=== PATIENT | female | born 1990 | race Caucasian/White ===

== ENCOUNTER 2016-09-10 22:12 | Emergency (ER) | payer OTHER ==
[~2016-09-10] VITALS: Ht 147.3 cm; Wt 75.0 kg
[2016-09-10 22:39] VITALS: BP 118/63; PULSE 89; RESP 18; TEMP 98.1; O2SAT 100
[2016-09-10] MEDS ORDERED: VENL75TA PO (22:47)
[2016-09-10] MEDS ORDERED: TOPA50TA7 PO (22:47)
[2016-09-10] MEDS ORDERED: ARIP1TAB5 PO (22:47)
[2016-09-10 23:10] LABS: AUTOMATED NEUTROPHIL # 15.6 TH/MM3 (1.8-7.7); BASOPHIL # 0.1 TH/MM3 (0-0.2); BASOPHIL % 0.4 % (0.0-2.0); EOSINOPHIL # 0.3 TH/MM3 (0-0.4); EOSINOPHIL % 1.2 % (0.0-4.0); HEMATOCRIT 36.1 % (35.0-46.0); LYMPH % 28.1 % (9.0-44.0); LYMPHOCYTE # 6.8 TH/MM3 (1.0-4.8); MEAN CELL VOLUME 76.1 FL (80.0-100.0); MEAN CORPUSCULAR HGB CONC 31.5 % (32.0-36.0); NEUT % 64.3 % (16.0-70.0); PLATELET COUNT 366 TH/MM3 (150-450); RED BLOOD COUNT 4.74 MIL/MM3 (4.00-5.30); WHITE BLOOD COUNT 24.2 TH/MM3 (4.0-11.0)
[2016-09-10 23:20] LABS: HEMO FLAGS AUTO DIFF
[2016-09-10 23:20] LABS: AMPHETAMINE, URINE NEG (NEG); BARBITURATES, URINE NEG (NEG); COCAINE, URINE NEG (NEG)
[2016-09-10 23:37] LABS: ALT (GPT) 21 U/L (10-53); ANION GAP 7 MEQ/L (5-15); AST (GOT) 10 U/L (15-37); BICARBONATE 25.7 MEQ/L (21.0-32.0); BLOOD UREA NITROGEN 21 MG/DL (7-18); CHLORIDE 109 MEQ/L (98-107); GLOMERULAR FILTRATION RATE 67 ML/MIN (>89); POTASSIUM 3.9 MEQ/L (3.5-5.1); SODIUM (NA) 142 MEQ/L (136-145)
[2016-09-10 23:40] LABS: ALKALINE PHOSPHATASE 61 U/L (45-117); TOTAL BILIRUBIN ADULT 0.2 MG/DL (0.2-1.0)
--- NOTE | 2016-09-11 00:03 | PD ---
HPI . Suicidal ideation Chief Complaint: Psychiatric Symptoms Time Seen by Provider: 22:45 Travel History International Travel<30 days: No Contact w/Intl Traveler<30days: No Traveled to known affect area: No History of Present Illness HPI Patient presents to us as a Lorenzo Act because of suicidal ideation. Patient states that she has been an inpatient at an alcohol and drug abuse treatment center for about a week. He states that she told him tonight that she was thinking about killing herself. She states that she does not have a plan but if she did have a plan that would be to overdose. She states that she is in rehabilitation because of alcohol abuse. PFSH Past Medical History Asthma: Yes Depression: Yes (PTSD) Deep Vein Thrombosis: Yes (left leg) Tetanus Vaccination: < 5 Years Influenza Vaccination: No ?: Not LMP: 04/27/2016, pt states "i have very irregular periods" Past Surgical History Surgical History: No Previous Surgery Social History Alcohol Use: Yes (was daily until entered the treatment center) Tobacco Use: Yes (0.25 ppd) Substance Use: No Allergies-Medications (Allergen,Severity, Reaction): Coded Allergies: No Known Allergies (Unverified , 09/10/16) Reported Meds & Prescriptions Reported Meds & Active Scripts Active Reported Abilify (Aripiprazole) 10 Mg Tab 10 Mg PO DAILY Topamax (Topiramate) 50 Mg Tab 50 Mg PO DAILY Effexor (Venlafaxine HCl) 75 Mg Tab 150 Mg PO DAILY Review of Systems Except as stated in HPI: all other systems reviewed are Neg Psychiatric: Positive: Suicidal Ideations, Substance Abuse Physical Exam Narrative GENERAL: Awake and alert and in no acute distress. SKIN: Warm and dry. HEAD: Atraumatic. Normocephalic. EYES: Pupils equal and round. NECK: Trachea midline. CARDIOVASCULAR: Regular rate and rhythm. RESPIRATORY: No accessory muscle use. MUSCULOSKELETAL: No obvious deformities. No edema. NEUROLOGICAL: Awake and alert. No obvious cranial nerve deficits. Motor grossly within normal limits. Normal speech. PSYCHIATRIC: Flat affect. Good eye contact. Poor judgment. Data Data Last Documented VS Vital Signs Date Time Temp Pulse Resp B/P Pulse Ox O2 Delivery O2 Flow Rate FiO2 09/11/16 00:45 77 18 113/63 98 Room Air 09/10/16 22:39 98.1 Orders Complete Blood Count With Diff (09/10/16 22:45) Comprehensive Metabolic Panel (09/10/16 22:45) Psych Screen (09/10/16 22:45) Drug Screen, Random Urine (09/10/16 22:45) Alcohol (Ethanol) (09/10/16 22:45) Lactic Acid Sepsis Protocol (09/11/16 00:28) Urinalysis - C+S If Indicated (09/11/16 00:28) Blood Culture (09/11/16 00:28) Chest, Single Ap (09/11/16 00:28) Iv Access Insert/Monitor (09/11/16 00:28) Labs Laboratory Tests Test 09/10/16 09/10/16 09/11/16 22:45 22:50 00:45 Sodium Level 142 MEQ/L Potassium Level 3.9 MEQ/L Chloride Level 109 MEQ/L Carbon Dioxide Level 25.7 MEQ/L Anion Gap 7 MEQ/L Blood Urea Nitrogen 21 MG/DL Creatinine 1.01 MG/DL Estimat Glomerular Filtration 67 ML/MIN Rate Random Glucose 85 MG/DL Calcium Level 8.7 MG/DL Total Bilirubin 0.2 MG/DL Aspartate Amino Transf 10 U/L (AST/SGOT) Alanine Aminotransferase 21 U/L (ALT/SGPT) Alkaline Phosphatase 61 U/L Total Protein 6.8 GM/DL Albumin 3.3 GM/DL Ethyl Alcohol Level LESS THAN 3 MG/DL White Blood Count 24.2 TH/MM3 Red Blood Count 4.74 MIL/MM3 Hemoglobin 11.4 GM/DL Hematocrit 36.1 % Mean Corpuscular Volume 76.1 FL Mean Corpuscular Hemoglobin 24.0 PG Mean Corpuscular Hemoglobin 31.5 % Concent Red Cell Distribution Width 17.0 % Platelet Count 366 TH/MM3 Mean Platelet Volume 7.4 FL Neutrophils (%) (Auto) 64.3 % Lymphocytes (%) (Auto) 28.1 % Monocytes (%) (Auto) 6.0 % Eosinophils (%) (Auto) 1.2 % Basophils (%) (Auto) 0.4 % Neutrophils # (Auto) 15.6 TH/MM3 Lymphocytes # (Auto) 6.8 TH/MM3 Monocytes # (Auto) 1.4 TH/MM3 Eosinophils # (Auto) 0.3 TH/MM3 Basophils # (Auto) 0.1 TH/MM3 CBC Comment AUTO DIFF Differential Total Cells 100 Counted Neutrophils % (Manual) 61 % Band Neutrophils % 5 % Lymphocytes % 29 % Monocytes % 3 % Eosinophils % 2 % Neutrophils # (Manual) 16.0 TH/MM3 Differential Comment FINAL DIFF MANUAL Atypical Lymphocytes % Toxic Granulation 1+ Platelet Estimate NORMAL Platelet Morphology Comment NORMAL Urine Opiates Screen NEG Urine Barbiturates Screen NEG Urine Amphetamines Screen NEG Urine Benzodiazepines Screen NEG Urine Cocaine Screen NEG Urine Cannabinoids Screen NEG Urine Color YELLOW Urine Turbidity CLEAR Urine pH 6.5 Urine Specific [place] 1.026 Urine Protein NEG mg/dL Urine Glucose (UA) NEG mg/dL Urine Ketones NEG mg/dL Urine Occult Blood NEG Urine Nitrite NEG Urine Bilirubin NEG Urine Urobilinogen LESS THAN 2.0 MG/DL Urine Leukocyte Esterase NEG Urine RBC 1 /hpf Urine WBC 2 /hpf Urine Squamous Epithelial 2 /hpf Cells Urine Mucus FEW /lpf Urine Yeast (Budding) RARE Microscopic Urinalysis Comment CATH-CULT NOT IND Lactic Acid Level 1.1 mmol/L MDM Medical Decision Making Medical Screen Exam Complete: Yes Emergency Medical Condition: Yes Differential Diagnosis Differential diagnosis includes but is not limited to depression with suicidal gesture, suicide attempt, suicidal ideation, attention seeking behavior. Narrative Course Patient presents to us from another facility for suicidal ideation. She will be medically clear. Psych triage will be consult. CBC & BMP Diagram 09/10/16 22:45 Tox screen is negative. I have subsequently ordered a septic workup. Lactic acid level is normal. UA is negative for infection. Chest x-ray is clear. She is now medically clear for psychiatric evaluation. Diagnosis Primary Impression: Suicidal ideation Additional Impression: Leukocytosis Qualified Code: D72.829 - Leukocytosis, unspecified type Condition: Antonia Chadwick MD Sep 11, 2016 00:03
[2016-09-11 00:19] LABS: BANDS 5 % (0-6); EOSINOPHILS 2 % (0-4); PLATELET ESTIMATE SMEAR NORMAL (NORMAL); PLATELET MORPHOLOGY NORMAL (NORMAL); POLYS (SEG NEUTROPHILS) 61 % (16-70); SCAN/DIFF FINAL DIFF MANUAL; WBC DIFF SAMPLE 100
[2016-09-11 00:20] LABS: TOXIC GRANULATION 1+ (NORMAL)
[2016-09-11 00:45] VITALS: BP 113/63; PULSE 77; RESP 18; O2SAT 98
--- NOTE | 2016-09-11 01:09 | RADRPT ---
EXAM DATE/TIME: 09/11/2016 00:33 [facility] COMPARISON: No previous studies available for comparison. INDICATIONS : Shortness of breath. MEDICAL HISTORY : Asthma. SURGICAL HISTORY : None. ENCOUNTER: Initial ACUITY: 1 day PAIN SCORE: 0/10 LOCATION: Bilateral chest FINDINGS: A single view of the chest demonstrates the lungs to be symmetrically aerated without evidence of mas s, infiltrate or effusion. The cardiomediastinal contours are unremarkable. Osseous structures are intact. CONCLUSION: 1. No acute cardiopulmonary disease. Mickey Catalan MD on September 11, 2016 at 1:07 Board Certified Radiologist. This report was verified electronically.
[2016-09-11 01:37] LABS: BLOOD, URINE NEG (NEG); COMMENT (UR) CATH-CULT NOT IND; CULTURE IF INDICATED CATH CULTURE NOT IND; GLUCOSE,URINE NEG (NEG); KETONE, URINE NEG (NEG); MUCUS URINE FEW /lpf (OCC); NITRITE,URINE NEG (NEG); PH, URINE 6.5 (5.0-8.5); SQUAMOUS EPITHELIAL CELL URINE 2 /hpf (0-5); URINE COLOR YELLOW (YELLW/STRAW)
[2016-09-11 02:50] VITALS: BP 110/56; PULSE 75; RESP 18; O2SAT 97
[2016-09-11] MEDS ORDERED: TOPA100T11 PO (03:15)
[2016-09-11] MEDS ORDERED: GABA600T PO (03:15)
[2016-09-11] MEDS ORDERED: [UNRECOGNIZED DRUG - OTHER] PO (03:15)
[2016-09-11] MEDS ORDERED: ANTI2TAB PO (03:15)
[2016-09-11] MEDS ORDERED: FOLI1TAB4 PO (03:15)
[2016-09-11] MEDS ORDERED: KETO10 PO (03:15)
[2016-09-11] MEDS ORDERED: THIA100T PO (03:15)
[2016-09-11] MEDS ORDERED: IBUP400T20 PO (03:15)
[2016-09-11] MEDS ORDERED: PRAZ1CAP PO (03:15)
[2016-09-11] MEDS ORDERED: ROBA500T PO (03:15)
[2016-09-11] MEDS ORDERED: MULT1TAB84 PO (03:15)
[2016-09-11] MEDS ORDERED: VENTAER INH (03:15)
[2016-09-11] MEDS ORDERED: ZOFR4TAB3 SL (03:15)
[2016-09-11] MEDS ORDERED: VENL100T PO (03:15)
[2016-09-11] MEDS ORDERED: BENT20TA PO (03:15)
[2016-09-11] MEDS ORDERED: CLON0.1T PO (03:15)
[2016-09-11] MEDS ORDERED: TRAZ50TA12 PO (03:15)
[2016-09-11] MEDS ORDERED: VIST50CA PO (03:15)
[2016-09-11] MEDS ORDERED: SKIN1CRE2 TOPICAL (03:15)
[2016-09-11] MEDS ORDERED: CALC550C CHEW (03:15)
[2016-09-11] MEDS ORDERED: BENA25TA3 PO (03:15)
[2016-09-11] MEDS ORDERED: BENZ100 PO (03:15)
[2016-09-11] MEDS ORDERED: LAMI200T PO (03:15)
[2016-09-11] MEDS ORDERED: PRED10 PO (03:15)
[2016-09-11] MEDS ORDERED: IBUP800T23 PO (03:15)
[2016-09-11] MEDS ORDERED: ACET-703 PO (03:15)
[2016-09-11] MEDS ORDERED: COLA100C3 PO (03:15)
[2016-09-11] MEDS ORDERED: MILKSUS PO (03:15)
[2016-09-11] MEDS ORDERED: MYLASUS2 PO (03:15)
[2016-09-11 03:25] VITALS: BP 119/74; PULSE 78; RESP 18
[2016-09-11 06:30] VITALS: BP 112/62; PULSE 72; RESP 16
--- NOTE | 2016-09-11 12:44 | PD.CONS ---
Provisional Diagnosis Admission Date [place] I. Adjustment disorder with disturbance of conduct, alcohol use disorder, in early partial remission [place] II. Deferred [place] III. Asthma [place] IV. History of alcohol use disorder [place] V. 55 History of Present Illness Service Psychiatry Consult Requested By Primary Care Physician No Primary Care Physician HPI The patient is a 25-year-old woman, domiciled in [facility] in [place], single, unemployed, supported by parents, with psychiatric history of depression, bipolar disorder, 2 previous hospitalizations, last hospitalization was in April 2016 after an intoxication with lithium, 3 previous suicide attempts by overdosing, in active outpatient care provided by Dr. valencia, she is on Effexor 150 mg, Topamax 50 mg twice a day, Abilify 10 mg , medical history of asthma, who presents to us as a Lorenzo Act because of suicidal ideation. Patient states that she has been an inpatient at an alcohol and drug abuse treatment center for about a week. He states that she told him tonight that she was thinking about killing herself. She states that she does not have a plan but if she did have a plan that would be to overdose. She states that she is in rehabilitation because of alcohol abuse. On psychotic evaluation patient is calm, cooperative and pleasant, she says that she has chronic suicidal thoughts for a long time now. She clarifies that that does not mean that she is going act out her thoughts. Patient says that some people can become scared when she talks about this chronic suicidal thoughts, "because they don't know how his living with his impulsivity and having to control your self. At this moment the patient denies suicidal ideation, she denies visual and auditory hallucinations, she denies homicidal ideation, she denies depressive symptoms, she endorses motivation to continue her recovery of alcohol. She says that she has been sober now for about 2 weeks, previously she was drinking heavily about 10 beers per day. She says that her parents are paying for her rehabilitation. She plans to continue her outpatient psychiatric care with her psychiatrist Dr. valencia, she reports good compliance with medication and good response, no side effects. Review of Systems Constitutional: DENIES: Diaphoretic episodes, Fatigue, Fever, Weight gain, Weight loss, Chills, Dizziness, Change in appetite, Night Sweats Eyes: DENIES: Blurred vision, Diplopia, Eye inflammation, Eye pain, Vision loss , Photosensitivity, Double Vision Ears, nose, mouth, throat: DENIES: Tinnitus, Hearing loss, Vertigo, Nasal discharge, Oral lesions, Throat pain, Hoarseness, Ear Pain, Running Nose, Epistaxis, Sinus Pain, Toothache, Odynophagia Respiratory: DENIES: Apneas, Cough, Snoring, Wheezing, Hemoptysis, Sputum production, Shortness of breath Cardiovascular: DENIES: Chest pain, Palpitations, Syncope, Dyspnea on Exertion , PND, Lower Extremity Edema, Orthopnea, Claudication Genitourinary: DENIES: Abnormal vaginal bleeding, Dysmenorrhea, Dyspareunia, Sexual dysfunction, Urinary frequency, Urinary incontinence, Urgency, Hematuria , Dysuria, Nocturia, Vaginal discharge Musculoskeletal: DENIES: Joint pain, Muscle aches, Stiffness, Joint Swelling, Back pain, Neck pain Hematologic/lymphatic: DENIES: Bruising, Lymphadenopathy Neurologic: DENIES: Abnormal gait, Headache, Localized weakness, Paresthesias, Seizures, Speech Problems, Tremor, Poor Balance Psychiatric: DENIES: Anxiety, Confusion, Mood changes, Depression, Hallucinations, Agitation, Suicidal Ideation, Homicidal Ideation, Delusions Past Family Social History Coded Allergies: No Known Allergies (Unverified , 09/10/16) Reported Medications Venlafaxine (Effexor)100 Mg [id number] Mg PO DAILY #60 TAB Ref 0 09/11/16 Albuterol 18 GM Inh (Ventolin Hfa 18 GM Inh)90 Mcg/Act Aer2 Puff INH Q4H PRN ( SHORTNESS OF BREATH) #1 INHALER Ref 0 09/11/16 Gabapentin 600 Mg [id number] Mg PO HS #30 TAB Ref 0 09/11/16 Topiramate (Topamax)100 Mg Pay139 Mg PO HS #60 TAB Ref 0 09/11/16 Prazosin 1 Mg Cap1 Mg PO HS #60 CAP Ref 0 09/11/16 Ibuprofen 800 Mg Lvv810 Mg PO TID Ref 0 09/11/16 Ketorolac 10 Mg Tab10 Mg PO QID Ref 0 09/11/16 Methocarbamol (Robaxin)500 Mg Ewr550 Mg PO TID Ref 0 09/11/16 Skin Protectants, Misc. (Eucerin)1 Cre Cre1 Applic TOPICAL BID 09/11/16 Folic Acid (Folate)1 Mg Tab1 Mg PO DAILY Ref 0 09/11/16 Thiamine 100 Mg Knd468 Mg PO DAILY Ref 0 09/11/16 Multiple Vitamins W/ Minerals (Multivitamin Adults)1 Tab1 Tab PO DAILY Ref 0 09/11/16 Prednisone 10 Mg Tab10 Mg PO DAILY Ref 0 09/11/16 Benzonatate (Tessalon Perles)100 Mg End343 Mg PO TID PRN (COUGH) Ref 0 09/11/16 Diphenhydramine (Benadryl Allergy)25 Mg Tab25 Mg PO Q6H PRN (ALLERGIES) Ref 0 09/11/16 Magnesium Hydroxide Liq (Milk of Magnesia Liq)400 Mg/5 Ml Susp30 Ml PO ONCE # 30 ML Ref 0 09/11/16 Loperamide (Anti-Diarrheal)2 Mg Tab2 Mg PO DIRECTED PRN (DIARRHEA) Ref 0 Take 4 mg after 1st loose stool, then take 2 mg after each subsequent stool. Max 8 mg/day. 09/11/16 Calcium Carbonate-Mag Hydroxide (Antacid)550-110 Mg Chew2 Tab CHEW TID PRN ( HEARTBURN) Ref 0 09/11/16 Wejhmesl-Xisuageig-Ziizspjkzrv Liq (Mylanta Liq)200-200-20 Mg/5 Ml Susp30 Ml PO Q3HR PRN (Indigestion) Ref 0 Take between meals or as directed. Shake well. Maximum 120 ml/24 hrs. 09/11/16 Acetaminophen (Tylenol Extra Strength)500 Mg Tab1,000 Mg PO Q6H PRN (pain) Ref 0 09/11/16 Ibuprofen 400 Mg Szi735 Mg PO Q4H PRN (pain) Ref 0 09/11/16 Ondansetron Odt (Zofran Odt)4 Mg Tab4 Mg SL Q6HR PRN (Nausea/Vomiting) #30 TAB Ref 0 09/11/16 Trazodone 50 Mg Tab50 Mg PO HS PRN (INSOMNIA) #30 TAB Ref 0 09/11/16 Docusate Sodium (Colace)100 Mg Ica885 Mg PO BID PRN (Constipation) #60 CAP Ref 0 09/11/16 Dextromethorphan-Guaifenesin (Safe Tussin Dm Adult 100-10 mg/5Ml)1 Liq Liq30 Ml PO Q4HR 09/11/16 Clonidine 0.1 Mg Tab0.1 Mg PO Q4-6H PRN (Blood Pressure Management) #60 TAB Ref 0 09/11/16 Hydroxyzine Pamoate (Vistaril)50 Mg Cap50 Mg PO Q4-6H PRN (NAUSEA) Ref 0 09/11/16 Dicyclomine (Bentyl)20 Mg Tab20 Mg PO QID Ref 0 09/11/16 Aripiprazole (Abilify)10 Mg Tab10 Mg PO DAILY #30 TAB Ref 0 09/10/16 Topiramate (Topamax)50 Mg Tab50 Mg PO DAILY #60 TAB Ref 0 09/10/16 Discontinued Reported Medications Lamotrigine (Lamictal)200 Mg Nvb952 Mg PO HS #30 TAB Ref 0 09/11/16 Venlafaxine (Effexor)75 Mg Khp909 Mg PO DAILY #120 TAB Ref 0 09/10/16 Family History She denies Social History Patient was born and raised in [place], she has been living in for effort 3 years, she lives in [facility] in [place], she is single, unemployed, supported by parents, her highest level of education is high school Patient's Strengths (min. 2) Good insight of her impulsive behavior, suicidal thoughts, alcohol use disorder Physical Exam On physical exam, no withdrawal, no EPS, no tremors, no stiffness, no agitation or hyperactivity present Vital Signs Vital Signs Date Time Temp Pulse Resp B/P Pulse Ox O2 Delivery O2 Flow Rate FiO2 09/11/16 06:30 72 16 112/62 09/11/16 02:50 97 Room Air 09/10/16 22:39 98.1 Lab Results Toxicology and BAL is negative Mental Status Examination Appearance Overweight woman, good hygiene, in [facility], age appearing, she is calm and cooperative and pleasant Speech: Unremarkable Orientation: x3 Memory: Unremarkable Thought Process: Logical Thought Content: Unremarkable Hallucination Type: None Suicidal Ideation: No Previous Suicide Attempts: No Homicidal Ideation: No Insight: Good Affect: Good Mood: Appropriate Motor Activity: Normal gait Assessment & Plan Problem List: (1) Adjustment disorder with depressed mood Assessment & Plan: The patient is a 25-year-old woman with psychiatric history of depression, bipolar disorder, 2 previous hospitalizations , last hospitalization was in April 2016 after an intoxication with lithium, 3 previous suicide attempts by overdosing, in active outpatient care provided by Dr. valencia, she is on Effexor 150 mg, Topamax 50 mg twice a day, Abilify 10 mg, medical history of asthma, who presents to us as a Lorenzo Act because of suicidal ideation. Patient states that she has been an inpatient at an alcohol and drug abuse treatment center for about a week. He states that she told him tonight that she was thinking about killing herself. But, today for psychiatric evaluation patient is calm, cooperative, without any significant, acute or concerning evidence of objective or subjective depression, anxiety, frank or perceptual disturbances. Patient denies suicidal and was ideation, she denies visual and auditory hallucinations. Suicidal thoughts the patient claims are permanent and chronic are most probably related with underlying character structure and temperament, rather than to a primary major psychiatric condition decompensation. Patient does not benefit of psychiatric admission at this moment. She should continue her inpatient comprehensive rehabilitation program. Extensive support, motivation psycho education provided. She can continue her eye Care as an outpatient with Dr. valencia, continue current psychotropics, no changes. Lorenzo act will be lifted. ICD Code: F43.21 Assessment & Plan Estimated LOS: days Kaiden Craias MD Sep 11, 2016 12:44
== END 2016-09-11 11:00 | disposition home or self-care (01) ==
LOC: NEPC 22:12 → NEPJ 09-11 11:00
DX: F43.21 Adjustment disorder with depressed mood (principal); D72.829 Elevated white blood cell count, unspecified; R45.851 Suicidal ideations; J45.909 Unspecified asthma, uncomplicated; Z86.718 Personal history of other venous thrombosis and embolism; F17.210 Nicotine dependence, cigarettes, uncomplicated
CPT/HCPCS: 71010; 80053; 80307; 81001; 83605; 85007; 85027; 87040; 99283